=== PATIENT | female | born 1960 | race Caucasian/White ===

== ENCOUNTER → 2016-11-15 | Outpatient (CLI) | payer OTHER ==
[~2016-11-15] MED LIST: ABILIFY5 MG PO; AMOXIL500 MG PO; ANAPROX DS550 MG PO; ASPIRIN ADULT L81 M2 PO; ASPIRIN81 M1 PO; ATARAX25 MG PO; ATIVAN1 MG PO; BUPROPION HCL150 M1 PO; CLARITIN10 MG PO; COUMADIN4 M2 PO; COUMADIN5 M2 PO; CYMBALTA60 MG PO; Coumadin3 MG PO; FLEXERIL10 MG PO; FLEXERIL5 MG PO; GABAPENTIN800 MG PO; HYDROCODONE BIT1 T11 PO; KEFLEX500 MG PO; MACROBID100 M1 PO; MOTRIN800 MG PO; NAPROXEN; NEXIUM40 MG PO; NITROSTAT0.4 MG SL; OMEPRAZOLE D/R20 MG PO; OXYCODONE AND A1 T12 PO; PEPCID20 MG PO; PEPCID40 MG PO; PHENERGAN W/DM120 ML PO; PRAVACHOL40 MG PO; PRAVASTATIN SOD40 MG PO; PREDNICOT20 MG PO; QUDEXY XR50 MG PO; SERTRALINE HYD100 MG PO; SINGULAIR10 MG PO; SPIRIVA RESPIMAT4 G1 IH; SYMBICORT1 AE1 INH; VENTOLIN 02.5 MG/3 M INH; VENTOLIN H0.09 MG/AC INH; VICODIN 5/500 505 MG PO; VOLTAREN50 M1 PO; VOLTAREN50 MG PO; WARFARIN SODIUM3 MG PO; ZETIA10 MG PO; [UNRECOGNIZED DRUG - OTHER] PO
[2016-11-15 10:10] LABS: EST GLOM FILT AFRICAN AMERICAN > 60 ml/min
== END | disposition home or self-care (01) ==
LOC: LAB 09:46 → CT 10:00
PROVIDERS: Radiology Diagnostic Radiology
DX: R91.1 Solitary pulmonary nodule (principal); K76.89 Other specified diseases of liver; M47.899 Other spondylosis, site unspecified; F17.200 Nicotine dependence, unspecified, uncomplicated; Z85.41 Personal history of malignant neoplasm of cervix uteri

== ENCOUNTER 2017-02-05 09:46 | Emergency (ER) | payer OTHER ==
[~2017-02-05] VITALS: Ht 167.6 cm; Wt 72.6 kg
[2017-02-05 09:50] VITALS: BP 123/76
[2017-02-05] MEDS ORDERED: NAPROSYN500 MG PO (10:56)
== END 2017-02-05 11:10 | disposition home or self-care (01) ==
LOC: ED 09:46
DX: S60.221A Contusion of right hand, initial encounter (principal); R03.0 Elevated blood-pressure reading, without diagnosis of hypertension; M25.531 Pain in right wrist; I48.91 Unspecified atrial fibrillation; J44.9 Chronic obstructive pulmonary disease, unspecified; K21.9 Gastro-esophageal reflux disease without esophagitis; E78.00 Pure hypercholesterolemia, unspecified; G43.909 Migraine, unspecified, not intractable, without status migrainosus; Z88.6 Allergy status to analgesic agent; Z79.899 Other long term (current) drug therapy; Z79.02 Long term (current) use of antithrombotics/antiplatelets; Z87.891 Personal history of nicotine dependence; W22.8XXA Striking against or struck by other objects, initial encounter; Y93.89 Activity, other specified; Y92.89 Other specified places as the place of occurrence of the external cause; Y99.8 Other external cause status

== ENCOUNTER 2017-02-15 20:22 | Inpatient (IN) | payer OTHER ==
[2017-02-15] VITALS (7 sets, daily range): BP systolic 109–170; BP diastolic 64–78
[~2017-02-15] VITALS: Ht 167.6 cm; Wt 75.4 kg
--- NOTE | ~2017-02-15 | EKG ---
[place], [place] ELECTROCARDIOGRAM REPORT NAME: SHAWANDA LORA UNIT #: [id number] ROOM: 405 DOCTOR: ELIE PINEDO MD BIRTHDATE: [birth year] DOS: 02/15/2017 TIME: 2028. Normal sinus rhythm at 80 beats per minute. The tracing is normal. No previous tracing is available for comparison. ELIE PINEDO MD CM:EKGRPT:ELECTROCARDIOGRAM REPORT [id number] ELIE PINEDO MD
--- NOTE | ~2017-02-15 | EKG ---
[place], [place] ELECTROCARDIOGRAM REPORT NAME: SHAWANDA LORA UNIT #: [id number] ROOM: 405 DOCTOR: ELIE PINEDO MD BIRTHDATE: [birth year] DOS: 02/15/2017 TIME: 2028. Normal sinus rhythm at 80 beats per minute. The tracing is normal. No previous tracing is available for comparison. ELIE PINEDO MD CM:EKGRPT:ELECTROCARDIOGRAM REPORT [id number] ELIE PINEDO MD
[~2017-02-15 20:22] MED LIST changes: +NAPROSYN500 MG PO
[2017-02-15 20:46] LABS: BASO % 0.2 % (0.0-1.0); EOS # 0.2 10*3/uL (0.0-0.4); EOS % 1.6 % (1.0-4.0); HEMATOCRIT 41.2 % (37.0-47.0); HEMOGLOBIN 13.6 g/dl (12.0-16.0); IG # 0.1 10*3/uL (0.0-0.1); LYMPH # 2.8 10*3/uL (1.3-4.4); LYMPH % 20.2 % (27.0-41.0); MEAN CELL VOLUME 91.2 fl (81.0-99.0); MEAN CORPUSCULAR HGB 30.1 pg (27.0-31.0); MEAN PLATELET VOLUME 10.1 fl (9.6-12.3); MONO # 1.1 10*3/uL (0.1-1.0); MONO % 8.1 % (3.0-9.0); NEUT # 9.7 10*3/uL (2.3-7.9); NEUT % 69.5 % (47.0-73.0); PLATELET COUNT AUTOMATED 232 10*3/uL (130-400); RED BLOOD COUNT 4.52 10*6/uL (4.10-5.10); RED CELL DISTRI WIDTH 13.8 % (0-14.5); WHITE BLOOD COUNT 13.9 10*3/uL (4.8-10.8)
[2017-02-15 20:57] LABS: INTERNATIONAL NORM RATIO 2.2 (2.0-3.5); PROTHROMBIN TIME 24.1 SECONDS (9.0-12.4)
[2017-02-15 21:04] LABS: ALBUMIN 3.6 gm/dl (3.1-4.5); ALKALINE PHOSPHATASE 93 U/L (45-117); BILIRUBIN, TOTAL 0.2 mg/dl (0.2-1.0); BUN 16 mg/dl (7-24); CARBON DIOXIDE 22 mmol/L (21-32); CHLORIDE 109 mmol/L (98-107); EST GLOM FILT AFRICAN AMERICAN > 60 ml/min; GLUCOSE 102 mg/dL (65-99); MAGNESIUM 1.9 mg/dL (1.5-2.1); POTASSIUM 3.8 mmol/L (3.5-5.1); SGOT/AST 22 IU/L (3-35); SGPT/ALT 34 U/L (12-78); SODIUM 140 mmol/L (136-145); TOTAL PROTEIN 6.8 gm/dL (6.4-8.2)
[2017-02-15 21:06] LABS: TROPONIN I < 0.015 ng/ml (<0.045)
[2017-02-16] VITALS: BP 111/62
[2017-02-16] MEDS ORDERED: GABAPENTIN800 MG PO (01:00)
[2017-02-16] MEDS ORDERED: VOLTAREN50 M1 PO (01:02)
[2017-02-16] MEDS ORDERED: OXYCODONE AND A1 T12 PO (01:03)
[2017-02-16] MEDS ORDERED: ABILIFY15 MG PO (01:05)
[2017-02-16 04:50] VITALS: BP 100/60
[2017-02-16 07:09] LABS: BASO % 0.3 % (0.0-1.0); EOS # 0.2 10*3/uL (0.0-0.4); EOS % 3.6 % (1.0-4.0); HEMATOCRIT 36.8 % (37.0-47.0); HEMOGLOBIN 11.9 g/dl (12.0-16.0); LYMPH # 2.2 10*3/uL (1.3-4.4); LYMPH % 32.3 % (27.0-41.0); MEAN CELL VOLUME 93.4 fl (81.0-99.0); MEAN CORPUSCULAR HGB 30.2 pg (27.0-31.0); MEAN CORPUSCULAR HGB CONC 32.3 g/dl (33.0-37.0); MEAN PLATELET VOLUME 10.6 fl (9.6-12.3); MONO # 0.6 10*3/uL (0.1-1.0); NEUT # 3.6 10*3/uL (2.3-7.9); NEUT % 54.4 % (47.0-73.0); PLATELET COUNT AUTOMATED 181 10*3/uL (130-400); RED BLOOD COUNT 3.94 10*6/uL (4.10-5.10); WHITE BLOOD COUNT 6.7 10*3/uL (4.8-10.8)
[2017-02-16 07:38] LABS: BUN 14 mg/dl (7-24); CARBON DIOXIDE 28 mmol/L (21-32); CHLORIDE 113 mmol/L (98-107); CHOLESTEROL 146 mg/dL (<200); EST GLOM FILT AFRICAN AMERICAN > 60 ml/min; GLUCOSE 89 mg/dL (65-99); PHOSPHOROUS 2.9 mg/dL (2.5-4.9); POTASSIUM 3.9 mmol/L (3.5-5.1); SODIUM 146 mmol/L (136-145); TRIGLYCERIDES 166 mg/dl (<150); VLDL CHOLESTEROL 33 mg/dL (6-40)
[2017-02-16 07:43] LABS: INTERNATIONAL NORM RATIO 2.4 (2.0-3.5); PROTHROMBIN TIME 26.9 SECONDS (9.0-12.4)
[2017-02-16 07:46] LABS: HDL CHOLESTEROL 43 mg/dl (40-60); LDL CHOLESTEROL 70 mg/dL (9-159)
[2017-02-16 08:00] VITALS: BP 112/62
[2017-02-16 08:10] LABS: HEMOGLOBIN A1c 5.8 % (4.8-5.6)
[2017-02-16 12:00] VITALS: BP 116/70
== END 2017-02-16 14:49 | disposition home or self-care (01) | DRG 206 ==
LOC: ED 20:22 → EDHOLD 21:55 → 4E 21:55
PROVIDERS: Emergency Medicine Emergency Medical Services; Family Medicine
DX: M94.0 Chondrocostal junction syndrome [Tietze] (principal); E87.8 Other disorders of electrolyte and fluid balance, not elsewhere classified; I10 Essential (primary) hypertension; I48.0 Paroxysmal atrial fibrillation; F32.9 Major depressive disorder, single episode, unspecified; G43.909 Migraine, unspecified, not intractable, without status migrainosus; J44.9 Chronic obstructive pulmonary disease, unspecified; M19.90 Unspecified osteoarthritis, unspecified site; K21.9 Gastro-esophageal reflux disease without esophagitis; R73.9 Hyperglycemia, unspecified; E78.00 Pure hypercholesterolemia, unspecified; F41.9 Anxiety disorder, unspecified; F43.10 Post-traumatic stress disorder, unspecified; J30.9 Allergic rhinitis, unspecified; Z80.1 Family history of malignant neoplasm of trachea, bronchus and lung; Z82.49 Family history of ischemic heart disease and other diseases of the circulatory system; Z83.3 Family history of diabetes mellitus; Z79.51 Long term (current) use of inhaled steroids; Z79.1 Long term (current) use of non-steroidal anti-inflammatories (NSAID); Z90.710 Acquired absence of both cervix and uterus; Z79.01 Long term (current) use of anticoagulants; Z85.41 Personal history of malignant neoplasm of cervix uteri; Z79.899 Other long term (current) drug therapy; Z71.6 Tobacco abuse counseling; G89.29 Other chronic pain; M54.9 Dorsalgia, unspecified; E89.0 Postprocedural hypothyroidism; F17.210 Nicotine dependence, cigarettes, uncomplicated

== ENCOUNTER 2017-09-27 16:13 | Emergency (ER) | payer OTHER ==
[~2017-09-27] VITALS: Ht 167.6 cm; Wt 81.6 kg
[~2017-09-27 16:13] MED LIST changes: +ABILIFY15 MG PO
[2017-09-27 16:27] VITALS: BP 117/61
[2017-09-27] MEDS ORDERED: MEDROL DOSEPAK4 MG PO (16:39)
== END 2017-09-27 16:42 | disposition home or self-care (01) ==
LOC: ED 16:13
DX: M54.16 Radiculopathy, lumbar region (principal); F17.200 Nicotine dependence, unspecified, uncomplicated; Z90.710 Acquired absence of both cervix and uterus; Z98.890 Other specified postprocedural states; Z79.01 Long term (current) use of anticoagulants; Z79.899 Other long term (current) drug therapy; Z88.5 Allergy status to narcotic agent

== ENCOUNTER → 2017-10-10 | Outpatient (CLI) | payer OTHER ==
[~2017-10-10] MED LIST changes: +MEDROL DOSEPAK4 MG PO
== END | disposition home or self-care (01) ==
LOC: RAD 12:18
DX: M16.11 Unilateral primary osteoarthritis, right hip (principal); M79.604 Pain in right leg

== ENCOUNTER → 2017-11-21 | Outpatient (CLI) | payer OTHER | END | disposition home or self-care (01) | LOC: RAD 09:58 | DX: M79.604 Pain in right leg (principal); M54.6 Pain in thoracic spine; M25.78 Osteophyte, vertebrae; M16.11 Unilateral primary osteoarthritis, right hip; Z91.81 History of falling ==

== ENCOUNTER 2018-08-19 14:35 | Emergency (ER) | payer MEDICARE, MEDICAID ==
[~2018-08-19 14:35] MED LIST changes: -OMEPRAZOLE D/R20 MG PO; +OMEPRAZOLE40 MG PO
[2018-08-19 15:45] VITALS: BP 108/62
[2018-08-19] MEDS ORDERED: AUGMENTIN 875875 MG PO (16:56)
[2018-08-19] MEDS ORDERED: TESSALON PERLE100 M1 PO (16:56)
[2018-09-29] MEDS ORDERED: CELEXA10 MG PO (23:18)
[2018-09-29] MEDS ORDERED: COUMADIN5 M2 PO (23:18)
[2018-09-30] MEDS ORDERED: SIMVASTATIN40 MG PO (09:13)
[2018-09-30] MEDS ORDERED: PROPAFENONE HC300 MG PO (09:14)
[2018-09-30] MEDS ORDERED: ACYCLOVIR800 MG PO (10:23)
== END 2018-08-19 17:22 | disposition home or self-care (01) ==
LOC: ED 14:35
DX: J02.9 Acute pharyngitis, unspecified (principal); K13.79 Other lesions of oral mucosa; F17.200 Nicotine dependence, unspecified, uncomplicated; Z88.5 Allergy status to narcotic agent; Z79.899 Other long term (current) drug therapy; Z79.01 Long term (current) use of anticoagulants; Z90.710 Acquired absence of both cervix and uterus

== ENCOUNTER 2019-03-31 17:56 | Inpatient (IN) | payer MEDICARE, MEDICAID ==
[~2019-03-31] VITALS: Ht 167.6 cm; Wt 78.0 kg
--- NOTE | ~2019-03-31 | EKG ---
[place], [place] ELECTROCARDIOGRAM REPORT NAME: SHAWANDA LORA UNIT #: [id number] ROOM: 415 DOCTOR: BRAIN DRAFT REPORT BIRTHDATE: [birth year] [place] Test Date: 2019-03-31 Test Time: 23:32:20 Pat Name: SHAWANDA LORA Department: Room: 415 Gender: F Typing Office Worker: Kirti Barber : 1960 Requested By: JOHN VERDUZCO Order Number: [id number] Reading MD: Steven Todd MD Measurements Intervals [place] Rate: 67 P: 54 [place]: 216 QRS: 51 QRSD: 84 T: 64 QT: 421 QTc: 445 Interpretive Statements Sinus rhythm with first degree AV block Electronically Signed On 04-01-2019 5:56:37 PDT by Steven Todd MD CM:EKGRPT:ELECTROCARDIOGRAM REPORT [id number] JOHN DE LA PAZ DRAFT REPORT JOHN VERDUZCO MD
--- NOTE | ~2019-03-31 | PR ---
[place], [place] PROGRESS NOTE NAME: SHAWANDA LORA [facility] #: [id number] UNIT #: [id number] ROOM: 415 DOCTOR: ELIE PINEDO MD BIRTHDATE: [birth year] DOS: SUBJECTIVE: This patient has paroxysmal atrial fibrillation, has COPD and continues to smoke. She had a Lexiscan/Cardiolite study done this morning, which demonstrated normal LV systolic function and normal perfusion images, i.e., no ischemia. She also has been getting palpitations 2-3 times a week. Presumably, these are brief runs of atrial fibrillation. Increase propafenone to 225 mg every 8 hours. From cardiac standpoint, she can be discharged home. I will see her in the office in about 2-3 weeks. ELIE PINEDO MD CM:PNTRANS 1833 ELIE PINEDO MD 04/01/19 2348 interface
--- NOTE | ~2019-03-31 | ST ---
[place], [place] EXERCISE STRESS TEST REPORT NAME: SHAWANDA LORA [facility] #: [id number] UNIT #: [id number] ROOM: 415 DOCTOR: ELIE PINEDO MD BIRTHDATE: [birth year] DOS: LEXISCAN CARDIOLITE STUDY Regadenoson was infused over a period of 10 seconds and 40 seconds later, technetium 99 sestamibi was injected intravenously. She tolerated the medication well without any chest pain or breathing difficulty. Blood pressure was 102/60. Resting ECG demonstrated atrial fibrillation with controlled ventricular rate and normal ST-T waves. Post-regadenoson ECG showed no any additional abnormality. CONCLUSION: 1. She tolerated regadenoson infusion satisfactorily. 2. No clinical or electrocardiographic evidence of ischemia. 3. Nuclear report will be rendered separately. ELIE PINEDO MD CM:STRESS:EXERCISE STRESS TEST REPORT [id number] ELIE PINEDO MD
--- NOTE | ~2019-03-31 | EKG ---
[place], [place] ELECTROCARDIOGRAM REPORT NAME: SHAWANDA LORA UNIT #: [id number] ROOM: 415 DOCTOR: BRAIN DRAFT REPORT BIRTHDATE: [birth year] [facility] Test Date: 2019-03-31 Test Time: 20:39:07 Pat Name: SHAWANDA LORA Department: Room: 415 Gender: F Final Cigar And Box Examiner: Kirti Barber : 1960 Requested By: JOHN VERDUZCO Order Number: [id number] Reading MD: Steven Todd MD Measurements Intervals [place] Rate: 67 P: 48 [place]: 199 QRS: 39 QRSD: 71 T: 62 QT: 422 QTc: 446 Interpretive Statements Sinus rhythm Atrial premature complex Blocked PACs Electronically Signed On 04-01-2019 5:54:01 PDT by Steven Todd MD CM:EKGRPT:ELECTROCARDIOGRAM REPORT [id number] JOHN DE LA PAZ DRAFT REPORT JOHN VERDUZCO MD
--- NOTE | ~2019-03-31 | EKG ---
[place], [place] ELECTROCARDIOGRAM REPORT NAME: SHAWANDA LORA UNIT #: [id number] ROOM: 415 DOCTOR: BRAIN DRAFT REPORT BIRTHDATE: [birth year] [facility] Test Date: 2019-03-31 Test Time: 17:59:14 Pat Name: SHAWANDA LORA Department: Room: 415 Gender: F Franchise Consultant: Kirti Barber : 1960 Requested By: JOHN VERDUZCO Order Number: [id number] Reading MD: Steven Todd MD Measurements Intervals [place] Rate: 102 P: ME: QRS: 65 QRSD: 69 T: 87 QT: 343 QTc: 447 Interpretive Statements Atrial fibrillation Compared to ECG 03/25/2019 00:37:06 Myocardial infarct finding no longer present Electronically Signed On 04-01-2019 5:50:38 PDT by Steven Todd MD CM:EKGRPT:ELECTROCARDIOGRAM REPORT [id number] JOHN VERDUZCO MD EPIPHANY DRAFT REPORT JOHN VERDUZCO MD
[~2019-03-31 17:56] MED LIST changes: +ACYCLOVIR800 MG PO; +AUGMENTIN 875875 MG PO; +CELEXA10 MG PO; +PROPAFENONE HC300 MG PO; +SIMVASTATIN40 MG PO; +TESSALON PERLE100 M1 PO
[2019-03-31 18:07] VITALS: BP 108/77
[2019-03-31 18:18] LABS: BASO % 0.4 % (0.0-1.0); EOS # 0.1 10*3/uL (0.0-0.4); EOS % 0.9 % (1.0-4.0); HEMATOCRIT 42.6 % (37.0-47.0); HEMOGLOBIN 14.2 g/dl (12.0-16.0); LYMPH # 3.3 10*3/uL (1.3-4.4); LYMPH % 35.4 % (27.0-41.0); MEAN CORPUSCULAR HGB 30.7 pg (27.0-31.0); MEAN CORPUSCULAR HGB CONC 33.3 g/dl (33.0-37.0); MEAN PLATELET VOLUME 10.7 fl (9.6-12.3); MONO # 0.7 10*3/uL (0.1-1.0); MONO % 7.1 % (3.0-9.0); NEUT # 5.2 10*3/uL (2.3-7.9); NEUT % 56.1 % (47.0-73.0); PLATELET COUNT AUTOMATED 193 10*3/uL (130-400); RED BLOOD COUNT 4.63 10*6/uL (4.10-5.10); RED CELL DISTRI WIDTH 14.4 % (0-14.5); WHITE BLOOD COUNT 9.2 10*3/uL (4.8-10.8)
--- NOTE | 2019-03-31 18:33 | NUR ---
THE RECIEVING NURSE IS AT LUNCH, I WAS UNABLE TO GIVE REPORT AT THIS TIME
[2019-03-31 18:37] LABS: ALBUMIN 3.3 gm/dl (3.1-4.5); ALKALINE PHOSPHATASE 85 U/L (45-117); BUN 13 mg/dl (7-24); CHLORIDE 111 mmol/L (98-107); SGOT/AST 11 IU/L (3-35); SGPT/ALT 17 U/L (12-78); SODIUM 142 mmol/L (136-145)
[2019-03-31 18:42] VITALS: BP 109/67
[2019-03-31 18:42] LABS: TROPONIN I < 0.015 ng/ml (<0.045)
[2019-03-31 18:47] LABS: ACT PARTIAL THROMBO TIME 29.9 SECONDS (20.0-32.1); INTERNATIONAL NORM RATIO 2.2 (2.0-3.5)
[2019-03-31 19:15] VITALS: BP 98/64
--- NOTE | 2019-03-31 19:15 | NUR ---
A 58, admitted to 4E, under the services of ROSEMARY Levi DO with a diagnosis of CHEST PAIN, ATRIAL FIB WITH RVR. Chief complaint is CHEST PAIN NOT RELIEVED WITH NITRO. Patient arrived via ambulatory from ER. Monitor applied. Initial assessment completed. Vital signs taken and recorded. ROSEMARY LEVI DO notified of admission to the unit. Orders received. See assessment for past medical history, medications and allergies. Patient and/or family oriented to unit. [facility] visitation policy reviewed. Clothing/patient valuable form completed. RALF NICK
[2019-03-31 19:23] VITALS: BP 112/74
[2019-03-31 20:00] VITALS: BP 112/74
[2019-03-31] MEDS ORDERED: NITROSTAT0.4 MG SL (20:39)
--- NOTE | 2019-03-31 20:52 | NUR ---
CALL PLACED TO DR. YADAV TO ADVISE THAT PATIENTS MEDS HAVE BEEN RECONCILED, ALSO ADVISED THAT PATIENT FOLLOWS WITH GEOFF PINEDOE RECEIVED TO Karis BREWER CONSULT AND CONSULT KHRIS, CALL PLACED TO ONCALL SERVICE SPOKE TO DR. FLORES ADVISED TO CALL DR. PINEDO AT [phone].
--- NOTE | 2019-03-31 23:15 | NUR ---
OBTAINED PATIENT FROM [facility]. PATIENT IS AWAKE AND ALERT, AWARE TO NOT TO EAT OR DRINK AFTER MIDNIGHT FR STRESS TEST. NO DISTRESS NOTED, RESP ARE ERND ON ROOM AIR. PATIENT NSR 60'S PER CM AT THIS, PATIENT STATES NO CP/PRESSURE. BED IS LOCKED IN LOWEST POSITION. CALL LIGHT WITHIN REACH
[2019-04-01] VITALS: BP 110/70
--- NOTE | 2019-04-01 01:29 | NUR ---
24 HR chart check completed.
--- NOTE | 2019-04-01 06:27 | NUR ---
INFORMED OF CONSULT. STATED OK, AND WILL SEE TODAY.
[2019-04-01 06:34] LABS: BASO % 0.4 % (0.0-1.0); EOS # 0.1 10*3/uL (0.0-0.4); EOS % 1.6 % (1.0-4.0); HEMATOCRIT 41.3 % (37.0-47.0); HEMOGLOBIN 13.2 g/dl (12.0-16.0); LYMPH # 2.8 10*3/uL (1.3-4.4); LYMPH % 42.1 % (27.0-41.0); MEAN CELL VOLUME 94.7 fl (81.0-99.0); MEAN CORPUSCULAR HGB 30.3 pg (27.0-31.0); MEAN PLATELET VOLUME 11.3 fl (9.6-12.3); MONO # 0.5 10*3/uL (0.1-1.0); MONO % 6.8 % (3.0-9.0); NEUT # 3.3 10*3/uL (2.3-7.9); NEUT % 48.8 % (47.0-73.0); PLATELET COUNT AUTOMATED 156 10*3/uL (130-400); RED BLOOD COUNT 4.36 10*6/uL (4.10-5.10); RED CELL DISTRI WIDTH 14.4 % (0-14.5); WHITE BLOOD COUNT 6.8 10*3/uL (4.8-10.8)
[2019-04-01 06:39] LABS: BUN 10 mg/dl (7-24); CHLORIDE 112 mmol/L (98-107); CHOLESTEROL 160 mg/dL (<200); CREATININE 0.76 mg/dL (0.55-1.02); HDL CHOLESTEROL 51 mg/dl (40-60); LDL CHOLESTEROL 91 mg/dL (9-159); POTASSIUM 3.9 mmol/L (3.5-5.1); SODIUM 143 mmol/L (136-145); TRIGLYCERIDES 89 mg/dl (<150); VLDL CHOLESTEROL 18 mg/dL (6-40)
--- NOTE | 2019-04-01 09:00 | NUR ---
Experimental Welder in to talk to patient. Patient states lives at home with alone. There are few steps in the home. Physician: vijay parker [facility]acy: [facility] Home health services: none Patient's level of ADLs: INDEPENDENT Patient has working utilities: all working DME: none Follow-up physician's appointment after d/c: will be made by hospitalist nurse director upon discharge Does patient want to access PORTAL?: no Discharge plan discussed with patient, she lives at home alone, she is independent in adls and ambulation, she states she will return home when able and denies any home needs. CHUCK BAXTER
--- NOTE | 2019-04-01 11:32 | NUR ---
INFORMED SIGNED CONSENT OBTAINED FOR LEXISCAN STRESS TEST WITH DR PINEDO. RESTING EKG AFIB HR 72 BP 104/64. PULSE OX 96% LUNGS CLEAR. PT COMPLETED ONE MINUTE OF A LEXISCAN PROTOCOL WIHT PT RECEIVING LEXISCAN 0.4MG IV OVER 10 SECONDS. NO ARRHYTHMIAS NOTED. NON DIAGNOSTIC ST CHANGES SEEN. PT C/O SOB WITH INJECTION. LAST RECOVERY HR OF 92 BP 102/64. PT IN STABLE CONDITION, AWAITING NUCLEAR IMAGES.
[2019-04-01 12:00] VITALS: BP 94/68
[2019-04-01 16:00] VITALS: BP 94/68
--- NOTE | 2019-04-01 19:28 | NUR ---
Discharge instructions reviewed with patient/family. Patient receptive and verbalizes understanding. Follow-up care arranged. Written instructions given to patient/family. MCKAYLA VELARDE
== END 2019-04-01 19:29 | disposition home or self-care (01) | DRG 309 ==
LOC: ED 17:56 → EDHOLD 18:15 → 4E 18:33
PROVIDERS: Emergency Medicine; Student in an Organized Health Care Education/Training Program; ADMIT Emergency Medicine
DX: I48.0 Paroxysmal atrial fibrillation (principal); E44.0 Moderate protein-calorie malnutrition; R07.9 Chest pain, unspecified; R00.1 Bradycardia, unspecified; E78.00 Pure hypercholesterolemia, unspecified; J44.9 Chronic obstructive pulmonary disease, unspecified; F41.9 Anxiety disorder, unspecified; F32.9 Major depressive disorder, single episode, unspecified; F43.10 Post-traumatic stress disorder, unspecified; M51.37 Other intervertebral disc degeneration, lumbosacral region; G43.909 Migraine, unspecified, not intractable, without status migrainosus; J30.2 Other seasonal allergic rhinitis; K44.9 Diaphragmatic hernia without obstruction or gangrene; K21.9 Gastro-esophageal reflux disease without esophagitis; R91.1 Solitary pulmonary nodule; M54.16 Radiculopathy, lumbar region; I10 Essential (primary) hypertension; G89.29 Other chronic pain; M54.9 Dorsalgia, unspecified; R73.9 Hyperglycemia, unspecified; R73.03 Prediabetes; F17.210 Nicotine dependence, cigarettes, uncomplicated; Z71.6 Tobacco abuse counseling; Z79.01 Long term (current) use of anticoagulants; Z88.5 Allergy status to narcotic agent; Z85.41 Personal history of malignant neoplasm of cervix uteri; Z90.710 Acquired absence of both cervix and uterus; Z98.891 History of uterine scar from previous surgery; Z80.1 Family history of malignant neoplasm of trachea, bronchus and lung; Z82.49 Family history of ischemic heart disease and other diseases of the circulatory system; Z84.1 Family history of disorders of kidney and ureter; Z81.2 Family history of tobacco abuse and dependence; Z83.3 Family history of diabetes mellitus; Z79.899 Other long term (current) drug therapy; Z68.27 Body mass index [BMI] 27.0-27.9, adult; I48.2 Chronic atrial fibrillation

== ENCOUNTER 2019-04-09 20:08 | Emergency (ER) | payer OTHER, MEDICAID ==
[~2019-04-09] VITALS: Ht 167.6 cm; Wt 78.0 kg
[2019-04-09 20:11] VITALS: BP 136/77
== END 2019-04-09 22:44 | disposition home or self-care (01) ==
LOC: ED 20:08
DX: S63.502A Unspecified sprain of left wrist, initial encounter (principal); S09.90XA Unspecified injury of head, initial encounter; M25.511 Pain in right shoulder; M25.551 Pain in right hip; M25.561 Pain in right knee; I48.91 Unspecified atrial fibrillation; J44.9 Chronic obstructive pulmonary disease, unspecified; G89.29 Other chronic pain; K21.9 Gastro-esophageal reflux disease without esophagitis; E78.00 Pure hypercholesterolemia, unspecified; G43.909 Migraine, unspecified, not intractable, without status migrainosus; F17.210 Nicotine dependence, cigarettes, uncomplicated; Z88.5 Allergy status to narcotic agent; Z91.048 Other nonmedicinal substance allergy status; Z79.899 Other long term (current) drug therapy; Z79.01 Long term (current) use of anticoagulants; W19.XXXA Unspecified fall, initial encounter; Y93.89 Activity, other specified; Y92.89 Other specified places as the place of occurrence of the external cause; Y99.8 Other external cause status

== ENCOUNTER 2019-10-04 14:46 | Emergency (ER) | payer OTHER ==
[~2019-10-04] VITALS: Ht 167.6 cm; Wt 81.6 kg
[2019-10-04 15:10] LABS: BASO % 0.5 % (0.0-1.0); EOS # 0.1 10*3/uL (0.0-0.4); EOS % 1.5 % (1.0-4.0); HEMATOCRIT 43.1 % (37.0-47.0); HEMOGLOBIN 14.1 g/dl (12.0-16.0); LYMPH # 3.3 10*3/uL (1.3-4.4); LYMPH % 41.1 % (27.0-41.0); MEAN CELL VOLUME 92.7 fl (81.0-99.0); MEAN CORPUSCULAR HGB 30.3 pg (27.0-31.0); MEAN CORPUSCULAR HGB CONC 32.7 g/dl (33.0-37.0); MEAN PLATELET VOLUME 10.6 fl (9.6-12.3); MONO # 0.8 10*3/uL (0.1-1.0); MONO % 9.5 % (3.0-9.0); NEUT # 3.7 10*3/uL (2.3-7.9); NEUT % 47.1 % (47.0-73.0); PLATELET COUNT AUTOMATED 219 10*3/uL (130-400); RED BLOOD COUNT 4.65 10*6/uL (4.10-5.10); RED CELL DISTRI WIDTH 13.9 % (0-14.5); WHITE BLOOD COUNT 7.9 10*3/uL (4.8-10.8)
[2019-10-04 15:23] LABS: ACT PARTIAL THROMBO TIME 25.6 SECONDS (20.0-32.1)
[2019-10-04 15:27] LABS: ALBUMIN 3.7 gm/dl (3.1-4.5); ALKALINE PHOSPHATASE 106 U/L (45-117); BUN 7 mg/dl (7-24); CHLORIDE 110 mmol/L (98-107); CREATININE 0.78 mg/dL (0.55-1.02); POTASSIUM 3.9 mmol/L (3.5-5.1); SGOT/AST 16 IU/L (3-35); SGPT/ALT 23 U/L (12-78); SODIUM 142 mmol/L (136-145); TOTAL PROTEIN 7.1 gm/dL (6.4-8.2)
[2019-10-04 15:29] LABS: TROPONIN I < 0.015 ng/ml (<0.045)
[2019-10-04 17:06] VITALS: BP 121/74
== END 2019-10-04 17:07 | disposition left against medical advice (07) ==
LOC: ED 14:46
PROVIDERS: Emergency Medicine
DX: R07.89 Other chest pain (principal); I48.91 Unspecified atrial fibrillation; J44.9 Chronic obstructive pulmonary disease, unspecified; Z53.29 Procedure and treatment not carried out because of patient's decision for other reasons; Z88.5 Allergy status to narcotic agent; Z91.048 Other nonmedicinal substance allergy status; Z79.899 Other long term (current) drug therapy; Z79.01 Long term (current) use of anticoagulants; Z90.710 Acquired absence of both cervix and uterus; Z86.73 Personal history of transient ischemic attack (TIA), and cerebral infarction without residual deficits; Z87.891 Personal history of nicotine dependence

== ENCOUNTER 2020-05-12 12:10 | Emergency (ER) | payer OTHER ==
[~2020-05-12] VITALS: Wt 85.7 kg
[2020-05-12 12:14] VITALS: BP 128/53
[2020-05-12] MEDS ORDERED: ELIQUIS5 M1 PO (12:23)
[2020-05-12] MEDS ORDERED: FLECAINIDE ACE150 M1 PO (12:23)
[2020-05-12] MEDS ORDERED: ATENOLOL25 MG PO (12:24)
[2020-05-12] MEDS ORDERED: MELATONIN1 M3 SL (12:25)
[2020-05-12] MEDS ORDERED: IMITREX25 M1 PO (13:47)
== END 2020-05-12 13:49 | disposition home or self-care (01) ==
LOC: ED 12:10
DX: G43.909 Migraine, unspecified, not intractable, without status migrainosus (principal); Z79.899 Other long term (current) drug therapy; Z79.01 Long term (current) use of anticoagulants

== ENCOUNTER → 2020-05-20 | Outpatient (CLI) | payer OTHER ==
[~2020-05-20] MED LIST changes: +ATENOLOL25 MG PO; +ELIQUIS5 M1 PO; +FLECAINIDE ACE150 M1 PO; +IMITREX25 M1 PO; +MELATONIN1 M3 SL
== END | disposition home or self-care (01) ==
LOC: MRI 09:24
PROVIDERS: ATTEND Nurse Practitioner Family
DX: I67.89 Other cerebrovascular disease (principal)

== ENCOUNTER → 2020-06-23 | Outpatient (CLI) | payer OTHER ==
--- NOTE | 2020-06-23 07:11 | NUR ---
INFORMED SIGNED CONSENT OBTAINED FOR LEXISCAN STRESS TEST WITH DR JACOBSON, RESTING EKG AFIB HR 80 BP 120/86. PULSE OX 97 % LUNGS CLEAR. PT COMPLETED ONE MINUTE OF A LEXISCAN PROTOCOL WITH PT RECEIVING LEXISCAN 0.4MG IV OVER 10 SEOCNDS. NO ARRHYTHMIAS OR ST CHANGES NOTED. PT C/O SOB WITH INJECTION. LAST RECOVERY HR OF 91 BP 116/78. PT IN STABLE CONDITION, AWAITING NUCLEAR IMAGES.
== END | disposition home or self-care (01) ==
LOC: CARD 00:18
PROVIDERS: ATTEND Internal Medicine Cardiovascular Disease
DX: I20.9 Angina pectoris, unspecified (principal); R94.31 Abnormal electrocardiogram [ECG] [EKG]

== ENCOUNTER 2020-07-09 21:41 | Emergency (ER) | payer OTHER ==
[~2020-07-09] VITALS: Ht 167.6 cm; Wt 95.3 kg
[2020-07-09 21:49] VITALS: BP 134/68
== END 2020-07-10 00:07 | disposition home or self-care (01) ==
LOC: ED 21:41
DX: R10.31 Right lower quadrant pain (principal); Z88.5 Allergy status to narcotic agent; Z79.899 Other long term (current) drug therapy

== ENCOUNTER 2020-12-03 14:43 | Emergency (ER) | payer OTHER ==
[~2020-12-03] VITALS: Ht 167.6 cm; Wt 97.5 kg
[2020-12-03 15:14] VITALS: BP 115/65
== END 2020-12-03 16:48 | disposition home or self-care (01) ==
LOC: ED 14:43
DX: R60.0 Localized edema (principal); J44.9 Chronic obstructive pulmonary disease, unspecified; Z79.899 Other long term (current) drug therapy; Z98.890 Other specified postprocedural states

== ENCOUNTER 2020-12-18 12:35 | Emergency (ER) | payer OTHER ==
[~2020-12-18] VITALS: Ht 167.6 cm; Wt 95.3 kg
[2020-12-18 12:47] VITALS: BP 127/62
[2020-12-18 16:45] LABS: BASO % 0.3 % (0.0-1.0); EOS # 0.1 10*3/uL (0.0-0.4); LYMPH # 2.2 10*3/uL (1.3-4.4); LYMPH % 33.8 % (27.0-41.0); MEAN CORPUSCULAR HGB CONC 31.8 g/dl (33.0-37.0); MEAN PLATELET VOLUME 10.7 fl (9.6-12.3); MONO # 0.5 10*3/uL (0.1-1.0); MONO % 6.9 % (3.0-9.0); NEUT # 3.7 10*3/uL (2.3-7.9); NEUT % 56.7 % (47.0-73.0); PLATELET COUNT AUTOMATED 228 10*3/uL (130-400); RED BLOOD COUNT 4.43 10*6/uL (4.10-5.10); RED CELL DISTRI WIDTH 14.5 % (0-14.5); WHITE BLOOD COUNT 6.6 10*3/uL (4.8-10.8)
[2020-12-18 16:57] LABS: INTERNATIONAL NORM RATIO 1.1 (2.0-3.5)
[2020-12-18 17:05] LABS: ALBUMIN 3.3 gm/dl (3.1-4.5); ALKALINE PHOSPHATASE 94 U/L (45-117); BUN 12 mg/dl (7-24); CHLORIDE 107 mmol/L (98-107); CREATININE 0.78 mg/dL (0.55-1.02); LIPASE 88 U/L (73-393); POTASSIUM 3.7 mmol/L (3.5-5.1); SGOT/AST 12 IU/L (3-35); SGPT/ALT 24 U/L (12-78); SODIUM 138 mmol/L (136-145); TOTAL PROTEIN 6.4 gm/dL (6.4-8.2)
[2020-12-18 17:06] LABS: TROPONIN I < 0.015 ng/ml (<0.045)
[2020-12-18] MEDS ORDERED: HYDROCODONE-AC1 EAC1 PO (18:35)
== END 2020-12-18 18:44 | disposition home or self-care (01) ==
LOC: ED 12:35
PROVIDERS: Emergency Medicine
DX: R91.1 Solitary pulmonary nodule (principal); R07.89 Other chest pain; F17.200 Nicotine dependence, unspecified, uncomplicated; Z88.5 Allergy status to narcotic agent; Z79.899 Other long term (current) drug therapy; Z90.711 Acquired absence of uterus with remaining cervical stump; Z98.890 Other specified postprocedural states

== ENCOUNTER 2020-12-23 12:16 | Emergency (ER) | payer OTHER ==
[~2020-12-23] VITALS: Ht 167.6 cm; Wt 96.6 kg
[~2020-12-23 12:16] MED LIST changes: +HYDROCODONE-AC1 EAC1 PO
[2020-12-23 12:44] LABS: BASO % 0.4 % (0.0-1.0); EOS # 0.1 10*3/uL (0.0-0.4); EOS % 1.1 % (1.0-4.0); HEMATOCRIT 38.7 % (37.0-47.0); LYMPH # 1.4 10*3/uL (1.3-4.4); LYMPH % 18.8 % (27.0-41.0); MEAN CELL VOLUME 87.4 fl (81.0-99.0); MEAN CORPUSCULAR HGB 27.5 pg (27.0-31.0); MEAN CORPUSCULAR HGB CONC 31.5 g/dl (33.0-37.0); MEAN PLATELET VOLUME 10.6 fl (9.6-12.3); MONO # 0.6 10*3/uL (0.1-1.0); MONO % 8.4 % (3.0-9.0); NEUT # 5.3 10*3/uL (2.3-7.9); PLATELET COUNT AUTOMATED 227 10*3/uL (130-400); RED BLOOD COUNT 4.43 10*6/uL (4.10-5.10); RED CELL DISTRI WIDTH 14.6 % (0-14.5); WHITE BLOOD COUNT 7.4 10*3/uL (4.8-10.8)
[2020-12-23 12:55] LABS: INTERNATIONAL NORM RATIO 1.1 (2.0-3.5)
[2020-12-23 13:04] LABS: ALBUMIN 3.4 gm/dl (3.1-4.5); ALKALINE PHOSPHATASE 94 U/L (45-117); BUN 12 mg/dl (7-24); CHLORIDE 112 mmol/L (98-107); CREATININE 0.69 mg/dL (0.55-1.02); POTASSIUM 4.2 mmol/L (3.5-5.1); SGOT/AST 10 IU/L (3-35); SGPT/ALT 21 U/L (12-78); SODIUM 141 mmol/L (136-145); TOTAL PROTEIN 6.2 gm/dL (6.4-8.2)
[2020-12-23 13:08] LABS: TROPONIN I < 0.015 ng/ml (<0.045)
[2020-12-23 15:49] LABS: BILIRUBIN Negative (Negative); BLOOD Negative (Negative); CLARITY Cloudy (Clear); COLOR Yellow (Yellow); GLUCOSE Negative (Negative); KETONE Negative (Negative); LEUKO ESTERASE Trace (Negative); NITRITE Positive (Negative); PH 7.5 (4.5-8.0)
[2020-12-23 15:57] LABS: BACTERIA 3+; EPITHELIAL CELLS 31-40
[2020-12-23 16:17] VITALS: BP 128/68
[2020-12-23] MEDS ORDERED: CEFUROXIME AXE500 MG PO (18:13)
[2020-12-23] MEDS ORDERED: Meclizine25 MG PO (18:14)
== END 2020-12-23 18:18 | disposition home or self-care (01) ==
LOC: ED 12:16
PROVIDERS: Physician Assistant
DX: R42 Dizziness and giddiness (principal); N39.0 Urinary tract infection, site not specified; Z88.5 Allergy status to narcotic agent; Z79.899 Other long term (current) drug therapy; Z90.711 Acquired absence of uterus with remaining cervical stump; Z98.890 Other specified postprocedural states

== ENCOUNTER 2021-03-04 16:11 | Emergency (ER) | payer OTHER ==
[~2021-03-04] VITALS: Ht 167.6 cm; Wt 96.2 kg
[~2021-03-04 16:11] MED LIST changes: +CEFUROXIME AXE500 MG PO; +Meclizine25 MG PO
[2021-03-04 17:10] VITALS: BP 114/66
== END 2021-03-04 17:20 | disposition home or self-care (01) ==
LOC: ED 16:11
DX: S93.491A Sprain of other ligament of right ankle, initial encounter (principal); F17.200 Nicotine dependence, unspecified, uncomplicated; Z98.890 Other specified postprocedural states; Z90.710 Acquired absence of both cervix and uterus; Z79.899 Other long term (current) drug therapy; Z88.5 Allergy status to narcotic agent; X50.1XXA Overexertion from prolonged static or awkward postures, initial encounter; Y93.89 Activity, other specified; Y92.89 Other specified places as the place of occurrence of the external cause; Y99.9 Unspecified external cause status

== ENCOUNTER 2021-09-15 14:08 | Emergency (ER) | payer OTHER ==
[~2021-09-15] VITALS: Ht 167.6 cm; Wt 83.9 kg
[2021-09-15 14:29] VITALS: BP 82/54
[2021-09-15 15:10] LABS: BASO % 0.3 % (0.0-1.0); EOS # 0.1 10*3/uL (0.0-0.4); EOS % 0.6 % (1.0-4.0); HEMATOCRIT 47.6 % (37.0-47.0); LYMPH % 16.2 % (27.0-41.0); MEAN CORPUSCULAR HGB CONC 32.1 g/dl (33.0-37.0); MEAN PLATELET VOLUME 10.5 fl (9.6-12.3); MONO # 0.8 10*3/uL (0.1-1.0); MONO % 6.5 % (3.0-9.0); NEUT # 9.3 10*3/uL (2.3-7.9); NEUT % 76.1 % (47.0-73.0); PLATELET COUNT AUTOMATED 259 10*3/uL (130-400); RED BLOOD COUNT 5.47 10*6/uL (4.10-5.10); RED CELL DISTRI WIDTH 14.7 % (0-14.5); WHITE BLOOD COUNT 12.2 10*3/uL (4.8-10.8)
[2021-09-15 15:28] LABS: ALBUMIN 3.5 gm/dl (3.1-4.5); ALKALINE PHOSPHATASE 98 U/L (45-117); BUN 14 mg/dl (7-24); CHLORIDE 108 mmol/L (98-107); CREATININE 0.93 mg/dL (0.55-1.02); POTASSIUM 4.1 mmol/L (3.5-5.1); SGOT/AST 9 IU/L (3-35); SGPT/ALT 19 U/L (12-78); SODIUM 139 mmol/L (136-145)
== END 2021-09-15 18:04 | disposition home health service (06) ==
LOC: ED 14:08
PROVIDERS: Internal Medicine
DX: I48.91 Unspecified atrial fibrillation (principal); F17.200 Nicotine dependence, unspecified, uncomplicated; Z88.6 Allergy status to analgesic agent; Z79.899 Other long term (current) drug therapy; Z90.710 Acquired absence of both cervix and uterus; Z98.890 Other specified postprocedural states

== ENCOUNTER 2022-09-03 11:51 | Emergency (ER) | payer OTHER ==
[~2022-09-03] VITALS: Wt 65.8 kg
[2022-09-03 11:59] VITALS: BP 101/53
[2022-09-03] MEDS ORDERED: OXYCODONE HCL5 MG PO (12:17)
[2022-09-03] MEDS ORDERED: AMIODARONE HYD200 MG PO (12:17)
[2022-09-03] MEDS ORDERED: METOPROLOL SUCC25 M2 PO (12:18)
[2022-09-03 15:16] LABS: BASO % 0.3 % (0.0-1.0); EOS # 0.3 10*3/uL (0.0-0.4); EOS % 2.5 % (1.0-4.0); HEMATOCRIT 38.8 % (37.0-47.0); LYMPH # 1.1 10*3/uL (1.3-4.4); LYMPH % 10.9 % (27.0-41.0); MEAN CELL VOLUME 100.3 fl (81.0-99.0); MEAN CORPUSCULAR HGB 32.8 pg (27.0-31.0); MEAN CORPUSCULAR HGB CONC 32.7 g/dl (33.0-37.0); MEAN PLATELET VOLUME 10.1 fl (9.6-12.3); MONO % 9.7 % (3.0-9.0); NEUT # 7.8 10*3/uL (2.3-7.9); NEUT % 76.2 % (47.0-73.0); PLATELET COUNT AUTOMATED 227 10*3/uL (130-400); RED BLOOD COUNT 3.87 10*6/uL (4.10-5.10); RED CELL DISTRI WIDTH 13.2 % (0-14.5); WHITE BLOOD COUNT 10.2 10*3/uL (4.8-10.8)
[2022-09-03 15:31] LABS: ALKALINE PHOSPHATASE 88 U/L (46-116); BUN 11 mg/dl (9-23); CHLORIDE 102 mmol/L (98-107); POTASSIUM 3.7 mmol/L (3.4-5.1); SGPT/ALT 16 U/L (10-49); TOTAL PROTEIN 6.5 gm/dL (6.0-8.0)
[2022-09-03] MEDS ORDERED: VIBRAMYCIN100 MG PO (15:35)
== END 2022-09-03 16:04 | disposition home or self-care (01) ==
LOC: ED 11:51
PROVIDERS: Physician Assistant
DX: J18.9 Pneumonia, unspecified organism (principal); Z88.5 Allergy status to narcotic agent; Z88.8 Allergy status to other drugs, medicaments and biological substances; Z90.710 Acquired absence of both cervix and uterus; Z98.890 Other specified postprocedural states; Z90.89 Acquired absence of other organs; Z87.891 Personal history of nicotine dependence; Z20.822 Contact with and (suspected) exposure to COVID-19

== ENCOUNTER 2022-09-27 09:25 | Emergency (ER) | payer OTHER ==
[~2022-09-27] VITALS: Ht 167.6 cm; Wt 69.4 kg
[~2022-09-27 09:25] MED LIST changes: +AMIODARONE HYD200 MG PO; +METOPROLOL SUCC25 M2 PO; +OXYCODONE HCL5 MG PO; +VIBRAMYCIN100 MG PO
[2022-09-27 09:30] VITALS: BP 136/60
[2022-09-27 10:14] LABS: BASO % 0.4 % (0.0-1.0); EOS # 0.1 10*3/uL (0.0-0.4); EOS % 0.8 % (1.0-4.0); HEMATOCRIT 35.5 % (37.0-47.0); LYMPH % 13.5 % (27.0-41.0); MEAN CELL VOLUME 100.9 fl (81.0-99.0); MEAN CORPUSCULAR HGB CONC 32.7 g/dl (33.0-37.0); MEAN PLATELET VOLUME 9.3 fl (9.6-12.3); MONO # 0.6 10*3/uL (0.1-1.0); MONO % 8.1 % (3.0-9.0); NEUT # 5.5 10*3/uL (2.3-7.9); NEUT % 76.9 % (47.0-73.0); PLATELET COUNT AUTOMATED 236 10*3/uL (130-400); RED BLOOD COUNT 3.52 10*6/uL (4.10-5.10); RED CELL DISTRI WIDTH 14.3 % (0-14.5); WHITE BLOOD COUNT 7.1 10*3/uL (4.8-10.8)
[2022-09-27 10:26] LABS: ACT PARTIAL THROMBO TIME 23.9 SECONDS (20.0-32.1)
[2022-09-27 10:27] LABS: ALKALINE PHOSPHATASE 80 U/L (46-116); BUN 11 mg/dl (9-23); CHLORIDE 104 mmol/L (98-107); SGPT/ALT 13 U/L (10-49); TOTAL PROTEIN 6.1 gm/dL (6.0-8.0)
[2022-09-27] MEDS ORDERED: AMOX-CLAV 875-1 EACH PO (10:59)
== END 2022-09-27 11:53 | disposition home or self-care (01) ==
LOC: ED 09:25
PROVIDERS: Family Medicine
DX: J18.9 Pneumonia, unspecified organism (principal); J44.9 Chronic obstructive pulmonary disease, unspecified; R89.5 Abnormal microbiological findings in specimens from other organs, systems and tissues; I48.91 Unspecified atrial fibrillation; Z86.73 Personal history of transient ischemic attack (TIA), and cerebral infarction without residual deficits; Z88.8 Allergy status to other drugs, medicaments and biological substances; Z90.710 Acquired absence of both cervix and uterus; Z96.651 Presence of right artificial knee joint; Z98.890 Other specified postprocedural states; Z87.891 Personal history of nicotine dependence; Z20.822 Contact with and (suspected) exposure to COVID-19

== ENCOUNTER 2023-03-06 01:15 | Emergency (ER) | payer OTHER ==
[~2023-03-06] VITALS: Ht 167.6 cm; Wt 68.0 kg
[~2023-03-06 01:15] MED LIST changes: +AMOX-CLAV 875-1 EACH PO
[2023-03-06 01:24] VITALS: BP 121/40
== END 2023-03-06 03:32 | disposition home or self-care (01) ==
LOC: ED 01:15
DX: G43.909 Migraine, unspecified, not intractable, without status migrainosus (principal); J44.9 Chronic obstructive pulmonary disease, unspecified; E07.9 Disorder of thyroid, unspecified; Z88.5 Allergy status to narcotic agent; Z88.8 Allergy status to other drugs, medicaments and biological substances; Z90.710 Acquired absence of both cervix and uterus; Z98.890 Other specified postprocedural states; F17.200 Nicotine dependence, unspecified, uncomplicated

== ENCOUNTER 2023-03-13 13:14 | Emergency (ER) | payer OTHER ==
[~2023-03-13] VITALS: Ht 167.6 cm; Wt 69.4 kg
[2023-03-13 13:24] VITALS: BP 123/71
== END 2023-03-13 15:43 | disposition home or self-care (01) ==
LOC: ED 13:14
DX: G43.909 Migraine, unspecified, not intractable, without status migrainosus (principal); J44.9 Chronic obstructive pulmonary disease, unspecified; Z88.5 Allergy status to narcotic agent; Z88.8 Allergy status to other drugs, medicaments and biological substances; Z90.710 Acquired absence of both cervix and uterus; Z98.890 Other specified postprocedural states; F17.200 Nicotine dependence, unspecified, uncomplicated

== ENCOUNTER 2023-06-15 14:18 | Emergency (ER) | payer OTHER ==
[~2023-06-15] VITALS: Ht 167.6 cm; Wt 68.0 kg
[2023-06-15 14:31] VITALS: BP 110/58
[2023-06-15 14:52] LABS: BASO % 0.6 % (0.0-1.0); EOS # 0.1 10*3/uL (0.0-0.4); HEMATOCRIT 39.7 % (37.0-47.0); LYMPH # 1.1 10*3/uL (1.3-4.4); MEAN CELL VOLUME 102.8 fl (81.0-99.0); MEAN CORPUSCULAR HGB 34.2 pg (27.0-31.0); MEAN CORPUSCULAR HGB CONC 33.2 g/dl (33.0-37.0); MEAN PLATELET VOLUME 9.4 fl (9.6-12.3); MONO # 0.6 10*3/uL (0.1-1.0); MONO % 9.3 % (3.0-9.0); NEUT # 4.7 10*3/uL (2.3-7.9); NEUT % 70.6 % (47.0-73.0); PLATELET COUNT AUTOMATED 226 10*3/uL (130-400); RED BLOOD COUNT 3.86 10*6/uL (4.10-5.10); RED CELL DISTRI WIDTH 12.5 % (0-14.5); WHITE BLOOD COUNT 6.7 10*3/uL (4.8-10.8)
[2023-06-15 15:07] LABS: ACT PARTIAL THROMBO TIME 25.7 SECONDS (20.0-32.1)
[2023-06-15 15:15] LABS: ALKALINE PHOSPHATASE 78 U/L (46-116); BUN 12 mg/dl (9-23); CHLORIDE 108 mmol/L (98-107); LIPASE 38 U/L (12-53); POTASSIUM 4.4 mmol/L (3.4-5.1); SGPT/ALT 25 U/L (5-49); TOTAL PROTEIN 5.9 gm/dL (6.0-8.0)
== END 2023-06-15 17:33 | disposition left against medical advice (07) ==
LOC: ED 14:18
PROVIDERS: Emergency Medicine
DX: R07.89 Other chest pain (principal); J44.9 Chronic obstructive pulmonary disease, unspecified; I48.91 Unspecified atrial fibrillation; Z88.5 Allergy status to narcotic agent; Z88.8 Allergy status to other drugs, medicaments and biological substances; Z90.710 Acquired absence of both cervix and uterus; Z98.890 Other specified postprocedural states; F17.200 Nicotine dependence, unspecified, uncomplicated

== ENCOUNTER → 2024-02-22 | Outpatient (CLI) | payer OTHER, MEDICARE ==
[~2024-02-22] MED LIST changes: +Ondansetron4 MG PO
[2024-02-22 11:44] LABS: BASO % 0.3 % (0.0-1.0); EOS # 0.1 10*3/uL (0.0-0.4); EOS % 0.7 % (1.0-4.0); HEMATOCRIT 39.2 % (37.0-47.0); LYMPH # 1.1 10*3/uL (1.3-4.4); LYMPH % 15.5 % (27.0-41.0); MEAN CELL VOLUME 100.3 fl (81.0-99.0); MEAN CORPUSCULAR HGB CONC 31.9 g/dl (33.0-37.0); MEAN PLATELET VOLUME 9.7 fl (9.6-12.3); MONO # 0.6 10*3/uL (0.1-1.0); MONO % 8.5 % (3.0-9.0); NEUT # 5.4 10*3/uL (2.3-7.9); NEUT % 74.5 % (47.0-73.0); PLATELET COUNT AUTOMATED 212 10*3/uL (130-400); RED BLOOD COUNT 3.91 10*6/uL (4.10-5.10); RED CELL DISTRI WIDTH 13.4 % (0-14.5); WHITE BLOOD COUNT 7.3 10*3/uL (4.8-10.8)
[2024-02-22 12:10] LABS: ALKALINE PHOSPHATASE 76 U/L (46-116); BUN 6 mg/dl (9-23); CHLORIDE 110 mmol/L (98-107); CHOLESTEROL 138 mg/dL (<200); LDL CHOLESTEROL 61 mg/dL (9-159); POTASSIUM 3.8 mmol/L (3.4-5.1); SGPT/ALT 12 U/L (5-49); TOTAL PROTEIN 6.3 gm/dL (6.0-8.0); TRIGLYCERIDES 103 mg/dl (<150)
== END | disposition home or self-care (01) ==
LOC: LAB 11:05
PROVIDERS: ATTEND Nurse Practitioner Family
DX: Z13.1 Encounter for screening for diabetes mellitus (principal); J44.9 Chronic obstructive pulmonary disease, unspecified; I48.91 Unspecified atrial fibrillation; Z76.89 Persons encountering health services in other specified circumstances

== ENCOUNTER 2024-05-21 10:34 | Emergency (ER) | payer OTHER ==
[~2024-05-21] VITALS: Ht 167.6 cm; Wt 77.3 kg
[2024-05-21 10:44] VITALS: BP 118/54
[2024-05-21] MEDS ORDERED: LORAZEPAM0.5 M1 PO (10:46)
[2024-05-21] MEDS ORDERED: ANORO ELLIPTA1 EACH INH (10:47)
[2024-05-21] MEDS ORDERED: ALBUTEROL SULF HFA 1 (10:47)
[2024-05-21] MEDS ORDERED: OXYCODONE HCL5 MG PO (10:47)
[2024-05-21] MEDS ORDERED: AIMOVIG AU70 MG/1 ML SQ (10:47)
[2024-05-21] MEDS ORDERED: UBRELVY100 MG PO (10:48)
[2024-05-21] MEDS ORDERED: METOPROLOL SUCC25 M2 PO (10:48)
[2024-05-21] MEDS ORDERED: BOTOX IM (10:48)
[2024-05-21 11:12] LABS: BASO % 0.3 % (0.0-1.0); EOS # 0.1 10*3/uL (0.0-0.4); EOS % 1.5 % (1.0-4.0); HEMATOCRIT 38.6 % (37.0-47.0); LYMPH # 1.2 10*3/uL (1.3-4.4); LYMPH % 19.4 % (27.0-41.0); MEAN CELL VOLUME 99.2 fl (81.0-99.0); MEAN CORPUSCULAR HGB 32.1 pg (27.0-31.0); MEAN CORPUSCULAR HGB CONC 32.4 g/dl (33.0-37.0); MEAN PLATELET VOLUME 9.3 fl (9.6-12.3); MONO # 0.5 10*3/uL (0.1-1.0); MONO % 8.8 % (3.0-9.0); NEUT # 4.1 10*3/uL (2.3-7.9); NEUT % 69.7 % (47.0-73.0); PLATELET COUNT AUTOMATED 208 10*3/uL (130-400); RED BLOOD COUNT 3.89 10*6/uL (4.10-5.10); RED CELL DISTRI WIDTH 13.3 % (0-14.5); WHITE BLOOD COUNT 5.9 10*3/uL (4.8-10.8)
[2024-05-21 11:24] LABS: BILIRUBIN Negative (Negative); BLOOD Trace-Intact (Negative); CLARITY Cloudy (Clear); COLOR Yellow (Yellow); GLUCOSE Negative (Negative); KETONE Trace (Negative); LEUKO ESTERASE 1+ (Negative); NITRITE Positive (Negative); SPECIFIC GRAVITY 1.025 (1.001-1.030)
[2024-05-21 11:32] LABS: BUN 12 mg/dl (9-23); CHLORIDE 108 mmol/L (98-107); POTASSIUM 4.2 mmol/L (3.4-5.1)
[2024-05-21 11:36] LABS: BACTERIA 3+; RBC 0-2 rbc/hpf (0-2)
[2024-05-21] MEDS ORDERED: CIPRO500 MG PO (14:00)
[2024-05-21] MEDS ORDERED: Ciprofloxacin Hydrochloride 500 MG TAB PO ONE (14:05)
== END 2024-05-21 14:07 | disposition home or self-care (01) ==
LOC: ED 10:34
PROVIDERS: Internal Medicine
DX: N39.0 Urinary tract infection, site not specified (principal); J44.9 Chronic obstructive pulmonary disease, unspecified; I48.91 Unspecified atrial fibrillation; F17.200 Nicotine dependence, unspecified, uncomplicated; Z88.5 Allergy status to narcotic agent; Z91.048 Other nonmedicinal substance allergy status; Z88.8 Allergy status to other drugs, medicaments and biological substances; Z90.710 Acquired absence of both cervix and uterus; Z98.890 Other specified postprocedural states

== ENCOUNTER 2025-02-19 18:44 | Emergency (ER) | payer OTHER ==
[~2025-02-19] VITALS: Ht 167.6 cm; Wt 77.1 kg
[~2025-02-19 18:44] MED LIST changes: +AIMOVIG AU70 MG/1 ML SQ; +ALBUTEROL SULF HFA 1; +ANORO ELLIPTA1 EACH INH; +BOTOX IM; +CIPRO500 MG PO; +LORAZEPAM0.5 M1 PO; +UBRELVY100 MG PO
[2025-02-19] MEDS ORDERED: OXYCODONE HCL (IR) 5 MG TAB PO ONE (19:05)
[2025-02-19 19:09] VITALS: BP 114/64
[2025-02-19] MEDS ORDERED: HYDROmorphONE Hydrochloride 0.5 MG/0.5 ML SYRINGE IM ONE (21:10)
[2025-02-19] MEDS ORDERED: Bacitracin Zinc 14 GM TUBE T ONE (21:55)
== END 2025-02-19 22:21 | disposition home or self-care (01) ==
LOC: ED 18:44
DX: S66.912A Strain of unspecified muscle, fascia and tendon at wrist and hand level, left hand, initial encounter (principal); S66.911A Strain of unspecified muscle, fascia and tendon at wrist and hand level, right hand, initial encounter; S60.222A Contusion of left hand, initial encounter; S80.212A Abrasion, left knee, initial encounter; R42 Dizziness and giddiness; J44.9 Chronic obstructive pulmonary disease, unspecified; I25.2 Old myocardial infarction; I48.91 Unspecified atrial fibrillation; E07.9 Disorder of thyroid, unspecified; F41.9 Anxiety disorder, unspecified; F32.A Depression, unspecified; K21.9 Gastro-esophageal reflux disease without esophagitis; E78.00 Pure hypercholesterolemia, unspecified; Z88.5 Allergy status to narcotic agent; Z91.048 Other nonmedicinal substance allergy status; Z88.8 Allergy status to other drugs, medicaments and biological substances; Z88.1 Allergy status to other antibiotic agents; Z86.73 Personal history of transient ischemic attack (TIA), and cerebral infarction without residual deficits; Z90.711 Acquired absence of uterus with remaining cervical stump; Z98.890 Other specified postprocedural states; Z87.891 Personal history of nicotine dependence; W18.39XA Other fall on same level, initial encounter; Y93.89 Activity, other specified; Y92.098 Other place in other non-institutional residence as the place of occurrence of the external cause; Y99.8 Other external cause status

== ENCOUNTER 2025-03-04 14:38 | Emergency (ER) | payer OTHER ==
[~2025-03-04] VITALS: Ht 167.6 cm; Wt 74.8 kg
[2025-03-04 14:50] VITALS: BP 115/76
== END 2025-03-04 16:37 | disposition left against medical advice (07) ==
LOC: ED 14:38
DX: M79.603 Pain in arm, unspecified (principal); Z53.21 Procedure and treatment not carried out due to patient leaving prior to being seen by health care provider

== ENCOUNTER → 2025-03-05 | Outpatient (CLI) | payer OTHER | END | disposition home or self-care (01) | LOC: RAD 13:11 | PROVIDERS: ATTEND Nurse Practitioner Family | DX: M25.532 Pain in left wrist (principal) ==